=== PATIENT | female | born 1950 | race Caucasian/White ===

== ENCOUNTER → 2016-04-28 | Outpatient (CLI) | payer OTHER ==
[2016-04-28 14:33] LABS: Non-African American GFR(MDRD) >60 (>60 ml/min/1.73 sqM)
--- NOTE | 2016-04-28 16:37 | MR ---
EXAMINATION TYPE: MR cervical spine wo/w con DATE OF EXAM: 04/28/2016 3:35 PM COMPARISON: NONE HISTORY: Neck pain, rt arm/shoulder pain & numbness, no hx surgery/trauma TECHNIQUE: Multiplanar, multisequence images of the cervical spine were acquired utilizing 7 mL intravenous Mult iHance gadolinium contrast. Diffusion weighted imaging was performed. C2-C3: No evidence for degenerative disc disease. No disc bulge/herniation or protrusion. No Canal stenosis. Foramina are patent bilaterally. C3-C4: Minimal disc bulge is present with anterior thecal sac contact. C4-C5: Broad-based disc bulging is anterior thecal sac flattening. No AP spinal canal stenosis or luca ral foraminal stenosis is present. C5-C6: Mild broad-based disc bulge has moderate anterior thecal sac compression. This comes in close approximation with the spinal cord. No AP spinal canal stenosis is evident. C6-C7: Mild disc bulge is present with anterior thecal sac compression. No spinal canal stenosis pres ent. This comes in close approximation with the spinal cord. C7-T1: No evidence for degenerative disc disease. No disc bulge/herniation or protrusion. No Canal stenosis. Foramina are patent bilaterally. Cervical segments are intact. There is normal alignment. Cervical spinal cord is of normal signal. Craniovertebral junction relationships are within normal limits. IMPRESSION: Multilevel disc bulging greater in the lower cervical spine discussed above. No cord contact or spina l canal stenosis is present.
== END | disposition home or self-care (01) ==
LOC: RADMRIMAIN 14:12
PROVIDERS: ATTEND Internal Medicine
DX: M50.222 Other cervical disc displacement at C5-C6 level (principal); M50.223 Other cervical disc displacement at C6-C7 level
CPT/HCPCS: 82565; 72156; 36415; A9577

== ENCOUNTER → 2016-06-29 | Outpatient (CLI) | payer OTHER ==
[2016-06-29 13:59] VITALS: BP 112/62; PULSE 83; RESP 18; TEMP 98.2
--- NOTE | 2016-06-29 14:13 | P.HPIM ---
History of Present Illness H&P Date: 06/29/16 Chief Complaint: neck and right upper extremity pain This is a 65-year-old patient referred by Dr. Bloom for chronic pain in the neck with radiation to right upper extremity. Patient has been taking medications from primary care physician including Loris 7.5/325 TID medications with some relief. Patient denies adverse drug effects from medications. Patient also denies new-onset weakness, bowel/bladder incontinence, or any other signs or symptoms of cauda equina syndrome. There are no signs of acute intoxication, and no indications of medication diversion or overuse. Patient notes that pain worsens significantly with lifting, reaching, turning her head and bending it forward and improves with rest, ice and medication. Patient has used several types of medications for pain, including NSAIDS, OPIOIDS (Loris), TRAMADOL. Patient HAS NOT had surgery. Patient HAS NOT had injections previously. Patient HAS NOT had physical therapy recently. In addition to above, 13-point review of systems is also negative for chest pain , shortness of breath, changes in vision, changes in hearing, new onset weakness , abdominal pain, diarrhea, extreme fatigue, malaise, fever, skin changes, homicidal or suicidal ideation, or bowel or bladder incontinence. 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 Past Anesthesia/Blood Transfusion Reactions: No Reported Reaction Additional Past Anesthesia/Blood Transfusion Reaction / Comment(s): Pt has never recieved blood. Past Psychological History: No Psychological Hx Reported Additional Psychological History / Comment(s): Pt lives alone. She is independent. She uses no assistive device or home care. She drives. She owns a cleaning company. Smoking Status: Current every day smoker Past Alcohol Use History: None Reported Additional Past Alcohol Use History / Comment(s): Pt states she started smoking at age 17 yrs. 3 packs/wk Past Drug Use History: None Reported - Past Family History Father Family Medical History: Cancer, Coronary Artery Disease (CAD) Additional Family Medical History / Comment(s): Father is . Father had lung cancer. He was a smoker. Mother Additional Family Medical History / Comment(s): Mother is living. She has a hiatal hernia and a mass behind her heart. She is 83yrs old. Medications and Allergies Home Medications Medication Instructions Recorded Confirmed Type Albuterol Inhaler [Ventolin Hfa 1 - 2 puff INHALATION Q6HR PRN 06/25/16 History Inhaler] HYDROcodone/APAP 7.5-325MG [Loris 1 tab PO Q8H PRN 06/25/16 06/29/16 History 7.5-325] Ondansetron HCl [Zofran] 8 mg PO DAILY PRN 06/25/16 06/29/16 History Promethazine HCl/Codeine 5 ml PO HS PRN 06/25/16 06/29/16 History [Prometh-Codein 6.25-10 mg/5 ml] Allergies Allergy/AdvReac Type Severity Reaction Status Date / Time acetaminophen [From Tylenol] Allergy Unknown Verified 10/04/14 04:16 Physical Exam Vitals: Intake and Output 06/28/16 06/29/16 06/29/16 22:59 06:59 14:59 Other: Weight 39.916 kg Patient Weight 06/30/16 06:59 Weight 39.916 kg Results Comments: MRI cervical spine dated 04/28/2016 demonstrates a broad-based disc bulge at the C4-C5 level with anterior thecal sac flattening. At the C5-C6 level there is a mild broad-based disc bulge with moderate anterior thecal sac compression without AP spinal canal stenosis evident. C6-C7 level there is mild disc bulge present with anterior thecal sac compression without spinal canal stenosis. The neural foramina are patent at all levels of the cervical spine. Assessment and Plan (1) Cervical disc herniation Status: Chronic (2) Cervical radiculitis Status: Chronic (3) Chronic pain syndrome Status: Chronic Plan: 1. Explanation: Opioid and psychological risk scores were reviewed. Diagnoses , prognoses, and multiple treatment options including but not limited to physical therapy, interventional therapies, adjuvant medical therapies, narcotic medication therapies, and surgery were discussed with the patient and all questions were answered to the patient's satisfaction. 2. Opioid agreement: Patient signed narcotic agreement, and was orally counseled to not overuse, abuse, divert, or cell medications, and to take them as prescribed by only 1 healthcare provider. The patient was also counseled to take medications as prescribed by only 1 healthcare provider and to store opioid medications in the safe and preferably locked location. Patient was also counseled against driving or operating heavy equipment while using narcotic medications and also not use alcohol or any illicit or recreational drugs. The patient verbalized understanding that lack of compliance with any of the above and likely result in failure to renew narcotic prescriptions, possible discharge from the clinic, and possible legal ramifications thereafter if indicated. 3. Counseling: The patient was counseled extensively on SMOKING CESSATION, BODY MASS INDEX, EXERCISE. Specifically, the patient was instructed regarding the importance of smoking cessation, obesity, and exercise in the context of both chronic pain and overall health. 4. Procedures: cervical REI series 5. Consultations: none 6. Investigations: none 7. Medications: none prescribed 8. Disposition: f/u for procedure as scheduled PQRS measures: 1-Patient's medications are documented in the chart. 2-Tobacco use is positive, counseling given 3-Patient has not had a pneumococcal vaccine. 4-Advanced care planning discussed, patient unable to give. 5-Opioid contract NOT signed with the patient. 6-Pain positive, follow-up visit or procedure scheduled 7-Patient's blood pressure measured and documented, and WNL. 8-Patient's weight was measured, and body mass index BELOW the normal limits, and counseling was done. Patient instructed to follow up with PCP. 9-Patient WAS NOT identified as an unhealthy alcohol user. Time with Patient: Greater than 30
== END | disposition home or self-care (01) ==
LOC: PNWHC3 13:20
PROVIDERS: ATTEND Anesthesiology
DX: M50.10 Cervical disc disorder with radiculopathy, unspecified cervical region (principal); G89.4 Chronic pain syndrome; F17.200 Nicotine dependence, unspecified, uncomplicated; Z88.6 Allergy status to analgesic agent
CPT/HCPCS: 99211

== ENCOUNTER 2016-07-13 08:42 | Day surgery (SDC) | payer OTHER ==
[~2016-07-13 08:42] MED LIST: LACTATED RINGERS 1,000 ML IV ONE
[2016-07-13 09:23] VITALS: BMI 16.0
[2016-07-13] MEDS ORDERED: LIDOCAINE 1% 20 ML VIAL (10MG/ML) FOR IV START INTRADERMA ONE (09:37)
[2016-07-13 09:39] VITALS: RESP 16; TEMP 98.8
[2016-07-13] MEDS ORDERED: IOHEXOL 180 MG/ML 1 ML ML ONE (09:45)
[2016-07-13] MEDS ORDERED: MIDAZOLAM 2 MG/2 ML VIAL ONE (09:45)
[2016-07-13] MEDS ORDERED: DEXAMETHASONE SOD PHOSPHATE 10 MG/ML 1 ML VIAL ONE (09:45)
--- NOTE | 2016-07-13 09:59 | P.PCN ---
Date of Procedure: 07/13/16 Preoperative Diagnosis: Postoperative Diagnosis: Procedure(s) Performed: . PROCEDURE 1. Cervical epidural steroid injection under fluoroscopic guidance, C7-T1 2. Cervical epidurogram. PREOPERATIVE DIAGNOSIS: 1- Cervical herniated Disc Diseases 2- Cervical radiculopathy . POSTOPERATIVE DIAGNOSIS: : 1- Cervical herniated Disc Diseases , 2- Cervical radiculopathy. ANESTHESIA: Local anesthesia with 1% lidocaine 3 ml ,and IV sedation with Versed 2 mg . EBL 0 PROCEDURE INDICATION: The patient with neck pain and radiculitis unresponsive to conservative treatment consents for procedure. PROCEDURE DESCRIPTION / TECHNIQUE: The patient was seen and identified in the preoperative area. Risks, benefits, complications, including but not limited to infections ,bleeding , allergic reactions to the medications ,and not complete pain releife, and alternatives were discussed with the patient, the patient agreed to proceed with the procedure and signed the consent. Patient was taken to the OR and time out was completed. The patient was placed in the prone position on the procedure table. A pillow was placed under the patients chest to increase the cervical interlaminar space. The cervical area was prepped and draped in the usual sterile fashion. Vital signs were closely monitored during the procedure. Conscious sedation was used during the procedure to decrease patients anxiety. Using anterior-posterior fluoroscopy, the C7-T1 interlaminar space was identified and the skin over this site was marked and then infiltrated with 1% lidocaine subcutaneously. Subsequently, a 20-gauge 3-1/2-inch Tuohy epidural needle was inserted and advanced toward the epidural space by means of the `` hanging-drop technique and guided by AP and lateral fluoroscopy. The correct needle position in the epidural space was verified with the injection of 2 mL of the water soluble contrast dye Isovue-180 and observing an excellent epidurogram with the epidural spread of the dye, after negative aspiration for blood and CSF and in the absence of paresthesias. Again after negative aspiration, mixture containing 20 mg Dexamethasone and 2 ml of preservative- free normal saline injected and a washout of epidurogram was seen. Needle was withdrawn intact, skin was cleansed, and bandages were applied. Complications= none. Disposition= patient was placed in supine position and transferred to the recovery room area in stable condition and there was no evidence of upper or lower extremity motor or sensory deficit after the procedure patient was discharged from recovery room after discharge criteria met and home discharge instructions was given by the staff and patient will follow with the pain clinic in 2-4 weeks Implants: Indications for Procedure: Operative Findings: Description of Procedure:
[2016-07-13] MEDS ORDERED: IV FLUID CONTINUATION 700 ML IV ONE (10:04)
[2016-07-13 10:22] VITALS: BP 108/71; PULSE 72
--- NOTE | 2016-07-13 12:00 | FL ---
Fluoroscopy HISTORY: Pain 2 seconds fluoroscopy time supplied to the referring clinician. 2 intraoperative C-arm images docume nt the procedure. See dictated report from anesthesia.
== END 2016-07-13 10:33 | disposition home or self-care (01) ==
LOC: ORPAIN 08:42
PROVIDERS: ATTEND Specialist
DX: M50.13 Cervical disc disorder with radiculopathy, cervicothoracic region (principal); Z88.6 Allergy status to analgesic agent
CPT/HCPCS: 62321; J2250; J1100; Q9965

== ENCOUNTER 2016-08-10 07:47 | Day surgery (SDC) | payer OTHER ==
[2016-08-09 09:02] VITALS: BMI 15.5
[2016-08-10] MEDS ORDERED: LACTATED RINGERS 1,000 ML IV SCH (08:00)
[2016-08-10 08:20] VITALS: RESP 16; TEMP 97.7
[2016-08-10] MEDS ORDERED: LIDOCAINE 1% 20 ML VIAL (10MG/ML) FOR IV START INTRADERMA ONE (08:28)
[2016-08-10] MEDS ORDERED: MIDAZOLAM 2 MG/2 ML VIAL ONE (08:55)
[2016-08-10] MEDS ORDERED: fentaNYL (PF) 50 MCG/ML 2 ML AMP ONE (08:55)
[2016-08-10] MEDS ORDERED: IOHEXOL 180 MG/ML 1 ML ML ONE (08:55)
[2016-08-10] MEDS ORDERED: DEXAMETHASONE SOD PHOS (MDV) 100 MG/10 ML VIAL ONE (08:55)
--- NOTE | 2016-08-10 09:09 | P.PCN ---
Date of Procedure: 08/10/16 Preoperative Diagnosis: Postoperative Diagnosis: Procedure(s) Performed: Implants: Surgeon: Enmanuel Mix Pathology: none sent Condition: stable Disposition: PACU Indications for Procedure: Operative Findings: Description of Procedure: PREOPERATIVE DIAGNOSIS: Cervical radiculopathy. POSTOPERATIVE DIAGNOSIS: Cervical radiculopathy. PROCEDURE 1. Cervical epidural steroid injection under fluoroscopic guidance, C7-T1 level. 2. Cervical epidurogram. ANESTHESIA: Local anesthesia with 1% lidocaine and IV sedation with versed/ fentanyl. EBL: Minimal PROCEDURE INDICATION: The patient with neck pain and radiculitis unresponsive to conservative treatment consents for procedure, KIP #2 in series after 12 hours relief from last procedure. No use of blood thinners. PROCEDURE DESCRIPTION / TECHNIQUE: The patient was seen and identified in the preoperative area. Risks, benefits, complications, and alternatives were discussed with the patient (including but not limited to incomplete pain relief, bleeding, infection, nerve damage, and allergies to medications), the patient agreed to proceed with the procedure and signed the consent after all questions were answered. Patient was taken to the OR and time out was completed to verify proper patient , position, laterality of pain, and allergies. Pt was placed in the prone position. A pillow was placed under the patients chest to increase the cervical interlaminar space. The cervical area was prepped and draped in the usual sterile fashion. Critical pause was taken. Vital signs were closely monitored during the procedure. Conscious sedation was used during the procedure to decrease patients anxiety. Using anterior-posterior fluoroscopy, the C7-T1 interlaminar space was identified and the skin over this site was marked and then infiltrated with 1% lidocaine subcutaneously in a paramedian fashion. Subsequently, a 20-gauge 3-1/2 -inch Tuohy epidural needle was inserted and advanced toward the epidural space by means of the loss of resistance technique and guided by AP and lateral fluoroscopy. After negative aspiration for blood or CSF and in the absence of paresthesias, the correct needle position in the epidural space was verified with the injection of 1 mL of the water soluble contrast dye Omnipaque-180 and observing an excellent epidurogram with the epidural spread of the dye, after negative aspiration for blood and CSF and in the absence of paresthesias. Again after negative aspiration, a 4 ml mixture containing 20 mg of PF Decadron and 2 ml of preservative free Normal Saline solution was injected and a washout of epidurogram was seen. Needle was withdrawn intact, skin was cleansed, and bandages were applied. COMPLICATIONS: None COMMENTS: DISPOSITION / PLANS: The patient was placed in a supine position and transferred to the recovery area in a stable condition for observation. There was no evidence of upper extremity motor or sensory deficit after the procedure. Patient was discharged from the recovery room after meeting discharge criteria. Home discharge instructions were given to the patient by the staff. The patient was reexamined prior to discharge and there were no issues. Despite having relief for only 8-12 hours after last cervical REI, patient wishes to have a full set of three procedures; she will be scheduled for a third cervical REI in 4-6 weeks.
[2016-08-10] MEDS ORDERED: IV FLUID CONTINUATION 1,000 ML IV ONE (09:16)
[2016-08-10 09:31] VITALS: BP 114/72; PULSE 75
--- NOTE | 2016-08-10 09:33 | FL ---
FLUOROSCOPY 6 seconds of fluoroscopy time were utilized during Pain Injection. 2 images document the procedure.
== END 2016-08-10 09:46 | disposition home or self-care (01) ==
LOC: ORPAIN 07:47
PROVIDERS: ATTEND Anesthesiology
DX: M54.12 Radiculopathy, cervical region (principal); Z88.6 Allergy status to analgesic agent
CPT/HCPCS: 62321; J2250; Q9965; J3010; J1100

== ENCOUNTER → 2016-08-26 | Outpatient (CLI) | payer OTHER ==
--- NOTE | 2016-08-27 09:07 | CT ---
EXAMINATION TYPE: CT abdomen pelvis w con DATE OF EXAM: 08/26/2016 COMPARISON: PET CT scan 11/02/2014 HISTORY: Pt states of abdominal pain. Hx of gastric/esophageal CA. CT DLP: 564 mGycm Automated exposure control for dose reduction was used. CONTRAST: CT scan of the abdomen pelvis is performed with IV Contrast, patient injected with 100 mL of Omnipaqu e 300. FINDINGS- LUNG BASES-there is a small left pleural effusion with evidence of compressive atelectasis. Emphysema tous changes are suspected. Linear changes right lung base typical of atelectasis. There is a moderat e-sized pericardial effusion. LIVER/GB-is cholecystectomy noted. Mild intrahepatic pillar dilation likely post cholecystectomy. Tin y hypodensities involving the liver too small to characterize. PANCREAS- No gross abnormality is seen. SPLEEN- No gross abnormality is seen. ADRENALS-chronic nodularity of the adrenal glands is nonspecific. KIDNEYS/BLADDER- no hydronephrosis nephrolithiasis or renal mass. Nonobstructing right renal calculus noted. BOWEL-postsurgical change involving the esophagus and stomach noted with suspected pull-through proce dure. Correlate clinically. Diverticulosis of the colon noted.. LYMPH NODES- No greater than 1cm abdominal or pelvic lymph nodes are appreciated. OSSEOUS STRUCTURES-bilateral spondylolysis L5. Minimal anterolisthesis L5 on S1 with severe degenerat dylan disc disease with vacuum disc. OTHER- there is evidence of ascites and there is a large complex mass involving the pelvis with inte rnal septations and solid components measuring approximately 13 x 9 x 8 cm. IMPRESSION- 1. Complex pelvic mass measuring 13 x 9 cm could be ovarian in etiology rather than gastric metastase s. Both are within the differential diagnosis. There is ascites and a moderate pericardial effusion. Correlate clinically. 2. Postsurgical changes involving the esophagus and stomach with suggestion pull-through procedure. 3. Small left pleural effusion. 4. The sigmoid and rectosigmoid colonic wall is thickened which may be related to incomplete distenti on in mass effect from the large pelvic mass. Correlate clinically to exclude mucosal lesion. No infl ammatory changes.
== END | disposition home or self-care (01) ==
LOC: RADCTMAIN 17:45
PROVIDERS: ATTEND Internal Medicine
DX: K63.89 Other specified diseases of intestine (principal); R18.8 Other ascites; Z98.890 Other specified postprocedural states
CPT/HCPCS: 74177; Q9967 ×2

== ENCOUNTER 2016-08-28 23:06 | Inpatient (IN) | payer OTHER ==
[2016-08-28] MEDS ORDERED: SODIUM CHLORIDE 0.9% 500 ML IV STA (23:30)
[2016-08-28] MEDS ORDERED: MORPHINE SULFATE 4 MG/ML SYRINGE IV STA (23:30)
[2016-08-28] MEDS ORDERED: ONDANSETRON 4 MG/2 ML VIAL IVP STA (23:30)
[2016-08-28 23:40] LABS: Basophils % (A) 0 %; CH 29.3; CHCM 32.3; Eosinophils # (A) 0.1 k/uL (0-0.7); Eosinophils % (A) 1 %; HCT 45.2 % (34.0-46.0); HDW 2.42; HGB 14.9 gm/dL (11.4-16.0); Luc # (Auto) 0.08; Luc % (Auto) 1; Lymphocytes # (A) 0.5 k/uL (1.0-4.8); Lymphocytes % (A) 5 %; Mean Platelet Volume 7.5; Monocytes # (A) 0.4 k/uL (0-1.0); Monocytes % (A) 4 %; Neutrophils # (A) 9.6 k/uL (1.3-7.7); Neutrophils % (A) 90 %; RBC 4.97 m/uL (3.80-5.40); RDW 13.5 % (11.5-15.5); WBC 10.7 k/uL (3.8-10.6); WBC (Perox) 9.98
[2016-08-28 23:53] LABS: INR 1.1 (<1.2); Partial Thromboplastin Time 22.3 sec (22.0-30.0); Prothrombin Time 11.4 sec (9.0-12.0)
[2016-08-28 23:54] LABS: ALT 63 U/L (9-52); AST 61 U/L (14-36); Alkaline Phosphatase 200 U/L (38-126); Amylase <30 U/L (30-110); Anion Gap 16 mmol/L; Blood Urea Nitrogen 27 mg/dL (7-17); Calcium 9.8 mg/dL (8.4-10.2); Carbon Dioxide 19 mmol/L (22-30); Chloride 101 mmol/L (98-107); Glucose 161 mg/dL (74-99); Non-African American GFR(MDRD) >60 (>60 ml/min/1.73 sqM); Potassium 4.5 mmol/L (3.5-5.1); Sodium 136 mmol/L (137-145); Total Bilirubin 0.7 mg/dL (0.2-1.3); Total Protein 6.9 g/dL (6.3-8.2)
--- NOTE | 2016-08-29 00:03 | ED ---
Abdominal Pain HPI - General Chief Complaint: Abdominal Pain Stated Complaint: abd pain Time Seen by Provider: 08/28/16 23:12 Source: patient, EMS, RN notes reviewed Mode of arrival: EMS Limitations: physical limitation - History of Present Illness Initial Comments: This a 65-year-old female presents emergency department via EMS chief complaint abdominal pain. Patient states she's been having increasing abdominal pain over the last few days. Patient saw her primary care physician for this and which she had a CT of her abdomen and pelvis [address] did show a large pelvic mass. Patient states she has a history of colon cancer esophageal cancer. Patient bowel resection and some his resection with pull-through procedure. Patient states that she felt that she is constipated give herself an enema states it did not help. She states then she digitally disimpact herself and she had 3 home balls of stool which removed but states it did not help her symptoms. Patient states her abdomen feels distended and very firm. Patient denies any fever, chills, chest pain or shortness breath. Patient denies any headache or dizziness. Patient states that her primary care physician was supposed to contact her oncologist though she never received a phone call. She denies any dysuria or hematuria. - Related Data Home Medications Medication Instructions Recorded Confirmed Albuterol Inhaler [Ventolin Hfa 1 - 2 puff INHALATION Q6HR PRN 06/25/16 08/28/16 Inhaler] Promethazine HCl/Codeine 5 ml PO Q8HR PRN 06/25/16 08/28/16 [Prometh-Codein 6.25-10 mg/5 ml] Lactulose 30 ml PO DAILY 08/28/16 08/28/16 Morphine Sulfate ER [Ms Contin] 30 mg PO Q12HR 08/28/16 08/28/16 Allergies Allergy/AdvReac Type Severity Reaction Status Date / Time acetaminophen [From Tylenol] Allergy stomach Verified 08/28/16 23:17 problems Review of Systems ROS Statement: Those systems with pertinent positive or pertinent negative responses have been documented in the HPI. ROS Other: All systems not noted in ROS Statement are negative. Past Medical History Past Medical History: Cancer, COPD, GERD/Reflux Additional Past Medical History / Comment(s): Other HX: colon cancer with resection, cervical cancer with hysterectomy, skin cancer with removal, heart murmur, hemorrhoids, back pain-bulging disc, 02-3 liters prn History of Any Multi-Drug Resistant Organisms: C-DIFF Past Surgical History: Bowel Resection, Cholecystectomy, Hysterectomy Additional Past Surgical History / Comment(s): Colon resection, hysterectomy ( pt has one ovary), skin cancer removal. Past Anesthesia/Blood Transfusion Reactions: No Reported Reaction Additional Past Anesthesia/Blood Transfusion Reaction / Comment(s): Pt has never recieved blood. Past Psychological History: No Psychological Hx Reported Smoking Status: Current every day smoker Past Alcohol Use History: None Reported Past Drug Use History: None Reported - Past Family History Father Family Medical History: Cancer, Coronary Artery Disease (CAD) Additional Family Medical History / Comment(s): Father is . Father had lung cancer. He was a smoker. Mother Additional Family Medical History / Comment(s): Mother is living. She has a hiatal hernia and a mass behind her heart. She is 83yrs old. General Exam Limitations: physical limitation General appearance: alert, in no apparent distress Head exam: Present: atraumatic, normocephalic, normal inspection Eye exam: Present: normal appearance, PERRL, EOMI. Absent: scleral icterus, conjunctival injection, periorbital swelling ENT exam: Present: normal exam, mucous membranes moist Neck exam: Present: normal inspection. Absent: tenderness, meningismus, lymphadenopathy Respiratory exam: Present: normal lung sounds bilaterally. Absent: respiratory distress, wheezes, rales, rhonchi, stridor Cardiovascular Exam: Present: regular rate, normal rhythm, normal heart sounds. Absent: systolic murmur, diastolic murmur, rubs, gallop, clicks GI/Abdominal exam: Present: soft, distended, tenderness (Moderate diffuse), rigid, normal bowel sounds. Absent: guarding, rebound Back exam: Absent: CVA tenderness (R), CVA tenderness (L) Skin exam: Present: warm, dry, intact, normal color. Absent: rash Course Vital Signs 08/28/16 08/29/16 08/29/16 23:10 00:16 00:58 Temperature 98.1 F 98.6 F Pulse Rate 94 88 92 Respiratory 30 H 35 H 32 H Rate Blood Pressure 128/75 141/87 131/83 O2 Sat by Pulse 95 95 95 Oximetry 08/29/16 08/29/16 02:35 03:27 Temperature 98.7 F 98.7 F Pulse Rate 93 90 Respiratory 30 H 22 Rate Blood Pressure 121/76 108/70 O2 Sat by Pulse 96 93 L Oximetry Medical Decision Making - Lab Data Result diagrams: 08/28/16 23:20 08/28/16 23:20 Lab Results 08/28/16 08/28/16 08/28/16 Range/Units 23:20 23:20 23:20 WBC 10.7 H (3.8-10.6) k/uL RBC 4.97 (3.80-5.40) m/uL Hgb 14.9 (11.4-16.0) gm/dL Hct 45.2 (34.0-46.0) % MCV 91.0 (80.0-100.0) fL MCH 30.0 (25.0-35.0) pg MCHC 33.0 (31.0-37.0) g/dL RDW 13.5 (11.5-15.5) % Plt Count 379 (150-450) k/uL Neutrophils % 90 % Lymphocytes % 5 % Monocytes % 4 % Eosinophils % 1 % Basophils % 0 % Neutrophils # 9.6 H (1.3-7.7) k/uL Lymphocytes # 0.5 L (1.0-4.8) k/uL Monocytes # 0.4 (0-1.0) k/uL Eosinophils # 0.1 (0-0.7) k/uL Basophils # 0.0 (0-0.2) k/uL PT (9.0-12.0) sec INR (<1.2) APTT (22.0-30.0) sec Sodium 136 L (137-145) mmol/L Potassium 4.5 (3.5-5.1) mmol/L Chloride 101 (98-107) mmol/L Carbon Dioxide 19 L (22-30) mmol/L Anion Gap 16 mmol/L BUN 27 H (7-17) mg/dL Creatinine 0.70 (0.52-1.04) mg/dL Est GFR (MDRD) Af Amer >60 (>60 ml/min/1.73 sqM) Est GFR (MDRD) Non-Af >60 (>60 ml/min/1.73 sqM) Glucose 161 H (74-99) mg/dL Lactic Ac Sepsis Rflx Plasma Lactic Acid Keyshawn 2.9 H* (0.7-2.0) mmol/L Calcium 9.8 (8.4-10.2) mg/dL Total Bilirubin 0.7 (0.2-1.3) mg/dL AST 61 H (14-36) U/L ALT 63 H (9-52) U/L Alkaline Phosphatase 200 H (38-126) U/L Total Protein 6.9 (6.3-8.2) g/dL Albumin 4.3 (3.5-5.0) g/dL Amylase <30 L (30-110) U/L Lipase 29 (23-300) U/L Urine Color Urine Appearance (Clear) Urine pH (5.0-8.0) Ur Specific [place] (1.001-1.035) Urine Protein (Negative) Urine Glucose (UA) (Negative) Urine Ketones (Negative) Urine Blood (Negative) Urine Nitrite (Negative) Urine Bilirubin (Negative) Urine Urobilinogen (<2.0) mg/dL Ur Leukocyte Esterase (Negative) Urine RBC (0-5) /hpf Urine WBC (0-5) /hpf Ur Squamous Epith Cells (0-4) /hpf Urine Bacteria (None) /hpf Hyaline Casts (0-2) /lpf Urine Mucus (None) /hpf 08/28/16 08/28/16 08/29/16 Range/Units 23:20 23:40 00:07 WBC (3.8-10.6) k/uL RBC (3.80-5.40) m/uL Hgb (11.4-16.0) gm/dL Hct (34.0-46.0) % MCV (80.0-100.0) fL MCH (25.0-35.0) pg MCHC (31.0-37.0) g/dL RDW (11.5-15.5) % Plt Count (150-450) k/uL Neutrophils % % Lymphocytes % % Monocytes % % Eosinophils % % Basophils % % Neutrophils # (1.3-7.7) k/uL Lymphocytes # (1.0-4.8) k/uL Monocytes # (0-1.0) k/uL Eosinophils # (0-0.7) k/uL Basophils # (0-0.2) k/uL PT 11.4 (9.0-12.0) sec INR 1.1 (<1.2) APTT 22.3 (22.0-30.0) sec Sodium (137-145) mmol/L Potassium (3.5-5.1) mmol/L Chloride (98-107) mmol/L Carbon Dioxide (22-30) mmol/L Anion Gap mmol/L BUN (7-17) mg/dL Creatinine (0.52-1.04) mg/dL Est GFR (MDRD) Af Amer (>60 ml/min/1.73 sqM) Est GFR (MDRD) Non-Af (>60 ml/min/1.73 sqM) Glucose (74-99) mg/dL Lactic Ac Sepsis Rflx Y Plasma Lactic Acid Keyshawn (0.7-2.0) mmol/L Calcium (8.4-10.2) mg/dL Total Bilirubin (0.2-1.3) mg/dL AST (14-36) U/L ALT (9-52) U/L Alkaline Phosphatase (38-126) U/L Total Protein (6.3-8.2) g/dL Albumin (3.5-5.0) g/dL Amylase (30-110) U/L Lipase (23-300) U/L Urine Color Dark Yellow Urine Appearance Cloudy H (Clear) Urine pH 5.5 (5.0-8.0) Ur Specific [place] 1.020 (1.001-1.035) Urine Protein 1+ H (Negative) Urine Glucose (UA) Negative (Negative) Urine Ketones 1+ H (Negative) Urine Blood Moderate H (Negative) Urine Nitrite Negative (Negative) Urine Bilirubin 1+ H (Negative) Urine Urobilinogen 3.0 (<2.0) mg/dL Ur Leukocyte Esterase Small H (Negative) Urine RBC 3 (0-5) /hpf Urine WBC 9 H (0-5) /hpf Ur Squamous Epith Cells 3 (0-4) /hpf Urine Bacteria Rare H (None) /hpf Hyaline Casts 157 H (0-2) /lpf Urine Mucus Moderate H (None) /hpf Disposition Clinical Impression: Intractable abdominal pain, Pelvic mass Disposition: ADMITTED IP TO THIS [facility] Condition: Fair Referrals: Shaina Bloom MD [Primary Care Provider] - 1-2 days
[2016-08-29] MEDS ORDERED: SODIUM CHLORIDE 0.9% 500 ML IV ONE (00:07)
--- NOTE | 2016-08-29 00:14 | XR ---
EXAM: XR Kub CLINICAL HISTORY: Reason: abdominal pain TECHNIQUE: Upright view abdomen. COMPARISON: CT abdomen and pelvis 08/26. FINDINGS/IMPRESSION: Nonobstructive bowel gas pattern. Contrast seen in colon. Contrast extends to the distal colon. No subdiaphragmatic free air is seen. Postop changes. Suspected pleural effusions with adjacent atelectasis.
[2016-08-29 00:18] LABS: Appearance,Urine Cloudy (Clear); Bacteria,Urine Rare /hpf; Bilirubin,Urine 1+ (Negative); Glucose,Urine (UA) Negative (Negative); Ketones,Urine 1+ (Negative); Leukocyte Esterase,Urine Small (Negative); Mucus,Urine Moderate /hpf; Nitrite,Urine Negative (Negative); PH, Urine 5.5 (5.0-8.0); Particle Count 15134; Protein,Urine 1+ (Negative); RBC,Urine 3 /hpf (0-5); Squamous Epithelial Cell,Urine 3 /hpf (0-4); UA Billing (MACRO vs. MICRO) MICRO; WBC,Urine 9 /hpf (0-5)
[2016-08-29] MEDS ORDERED: HYDROmorphone 1 MG/ML 1 ML SYRINGE IVP STA ×2 (00:19→03:24)
[2016-08-29] MEDS ORDERED: PIPERACILLIN-TAZOBACTAM 3.375 GM in DEXTROSE/WATER 1 50ML.BAG IVPB STA (00:59)
[2016-08-29] MEDS ORDERED: NALOXONE 0.4 MG/ML 1 ML VIAL IV PRN (03:44)
[2016-08-29] MEDS ORDERED: BISACODYL 5 MG TABLET.DR PO PRN (03:44)
[2016-08-29] MEDS: ONDANSETRON 4 MG/2 ML VIAL IVP PRN ×3 (04:37→21:30)
[2016-08-29] MEDS: SODIUM CHLORIDE 0.9% 1,000 ML IV SCH ×2 (04:40→17:42)
[2016-08-29 06:01] VITALS: BMI 13.7
[2016-08-29] MEDS: HYDROmorphone 1 MG/ML 1 ML SYRINGE IV PRN ×2 (06:31→11:02)
--- NOTE | 2016-08-29 13:30 | P.HPIM ---
History of Present Illness H&P Date: 08/29/16 Chief Complaint: Abdominal pain Patient is a 65-year-old female presents emergency department via EMS chief complaint abdominal pain. Patient states she's been having increasing abdominal pain over the last few days. Patient was seen in my office, for this and she had a CT of her abdomen and pelvis on 08/26/2016. The CT did show a large pelvic mass. Patient states she has a history of colon cancer esophageal cancer. Patient states that she felt that she is constipated give herself an enema states it did not help. She states then she digitally disimpact herself and she had 3 home balls of stool which removed but states it did not help her symptoms. Patient states her abdomen feels distended and very firm. Patient denies any fever, chills, chest pain or shortness breath. Patient denies any headache or dizziness. She denies any dysuria or hematuria. Past Medical History Past Medical History: Cancer, COPD, GERD/Reflux Additional Past Medical History / Comment(s): Other HX: colon cancer with resection, cervical cancer with hysterectomy, skin cancer with removal, heart murmur, hemorrhoids, back pain-bulging disc, 02-3 liters prn, stomach, lung, esophagus cancer History of Any Multi-Drug Resistant Organisms: C-DIFF Date of last positivie culture/infection: 08/15/2014 MDRO Source:: stool Past Surgical History: Bowel Resection, Cholecystectomy, Hysterectomy Additional Past Surgical History / Comment(s): Colon resection, hysterectomy ( pt has one ovary), skin cancer removal. Past Anesthesia/Blood Transfusion Reactions: No Reported Reaction Additional Past Anesthesia/Blood Transfusion Reaction / Comment(s): Pt has never recieved blood. Past Psychological History: No Psychological Hx Reported Additional Psychological History / Comment(s): Pt lives with mother. She is independent. She uses no assistive device or home care. She drives. Smoking Status: Current every day smoker Past Alcohol Use History: None Reported Past Drug Use History: None Reported - Past Family History Sister(s) Family Medical History: Cancer Additional Family Medical History / Comment(s): breast cancer Father Family Medical History: Cancer, Coronary Artery Disease (CAD) Additional Family Medical History / Comment(s): Father is . Father had lung cancer. He was a smoker. Mother Additional Family Medical History / Comment(s): Mother is living. She has a hiatal hernia and a mass behind her heart. She is 83yrs old. Medications and Allergies Home Medications Medication Instructions Recorded Confirmed Type Albuterol Inhaler [Ventolin Hfa 1 - 2 puff INHALATION RT-Q6H PRN 06/25/16 History Inhaler] Lactulose 30 ml PO DAILY 08/28/16 08/29/16 History Morphine Sulfate ER [Ms Contin] 30 mg PO Q12HR 08/28/16 08/29/16 History Allergies Allergy/AdvReac Type Severity Reaction Status Date / Time acetaminophen [From Tylenol] AdvReac stomach Verified 08/29/16 08:37 problems Physical Exam Vitals: Vital Signs Temp Pulse Pulse Resp BP BP BP 08/29/16 07:00 98.0 F 109 H 24 108/77 08/29/16 05:56 97.1 F L 94 16 116/68 08/29/16 04:37 98.9 F 94 24 109/77 08/29/16 03:27 98.7 F 90 22 108/70 08/29/16 02:35 98.7 F 93 30 H 121/76 08/29/16 00:58 98.6 F 92 32 H 131/83 08/29/16 00:16 88 35 H 141/87 08/28/16 23:10 98.1 F 94 30 H 128/75 Pulse Ox 08/29/16 07:00 92 L 08/29/16 05:56 92 L 08/29/16 04:37 94 L 08/29/16 03:27 93 L 08/29/16 02:35 96 08/29/16 00:58 95 08/29/16 00:16 95 08/28/16 23:10 95 Intake and Output 08/28/16 08/29/16 08/29/16 22:59 06:59 14:59 Other: Weight 34.019 kg In general patient is alert and oriented 3 in no apparent distress HEENT head normocephalic and atraumatic Neck is supple no JVD no goiter no lymphadenopathy Chest exam reveals a few scattered crackles no wheezing Cardiac exam reveals regular heart sounds S1 and S2 no gallops no murmurs Abdomen is hard with diffuse tenderness Extremity exam reveals no edema no cyanosis or clubbing Results CBC & Chem 7: 08/28/16 23:20 07/15/17 23:20 Labs: Abnormal Lab Results - Last 24 Hours (Table) 08/28/16 08/28/16 08/28/16 Range/Units 23:20 23:20 23:20 WBC 10.7 H (3.8-10.6) k/uL Neutrophils # 9.6 H (1.3-7.7) k/uL Lymphocytes # 0.5 L (1.0-4.8) k/uL Sodium 136 L (137-145) mmol/L Carbon Dioxide 19 L (22-30) mmol/L BUN 27 H (7-17) mg/dL Glucose 161 H (74-99) mg/dL Plasma Lactic Acid Keyshawn 2.9 H* (0.7-2.0) mmol/L AST 61 H (14-36) U/L ALT 63 H (9-52) U/L Alkaline Phosphatase 200 H (38-126) U/L Amylase <30 L (30-110) U/L Urine Appearance (Clear) Urine Protein (Negative) Urine Ketones (Negative) Urine Blood (Negative) Urine Bilirubin (Negative) Ur Leukocyte Esterase (Negative) Urine WBC (0-5) /hpf Urine Bacteria (None) /hpf Hyaline Casts (0-2) /lpf Urine Mucus (None) /hpf 08/28/16 Range/Units 23:40 WBC (3.8-10.6) k/uL Neutrophils # (1.3-7.7) k/uL Lymphocytes # (1.0-4.8) k/uL Sodium (137-145) mmol/L Carbon Dioxide (22-30) mmol/L BUN (7-17) mg/dL Glucose (74-99) mg/dL Plasma Lactic Acid Keyshawn (0.7-2.0) mmol/L AST (14-36) U/L ALT (9-52) U/L Alkaline Phosphatase (38-126) U/L Amylase (30-110) U/L Urine Appearance Cloudy H (Clear) Urine Protein 1+ H (Negative) Urine Ketones 1+ H (Negative) Urine Blood Moderate H (Negative) Urine Bilirubin 1+ H (Negative) Ur Leukocyte Esterase Small H (Negative) Urine WBC 9 H (0-5) /hpf Urine Bacteria Rare H (None) /hpf Hyaline Casts 157 H (0-2) /lpf Urine Mucus Moderate H (None) /hpf Thrombosis Risk Factor Assmnt - Choose All That Apply Any of the Below Risk Factors Present?: Yes Other Risk Factors: Yes Each Risk Factor Represents 2 Points: Age 61-74 years Other congenital or acquired thrombophilia - If yes, enter type in comment: No Thrombosis Risk Factor Assessment Total Risk Factor Score: 2 Thrombosis Risk Factor Assessment Level: Low Risk Assessment and Plan Plan: #1 abdominal pain with constipation #2 recently diagnosed large pelvic mass on computed tomography scan on 2006 #3 recent history of nasopharyngeal cancer #4 remote history of colon cancer #5 evidence of urinary tract infection At this time continue with IV antibiotic, IV fluid, keep nothing by mouth Consultation for general surgery and oncology initiated Will follow closely Prognosis is guarded
[2016-08-29] MEDS: LACTULOSE 20 GM/30 ML CUP PO SCH ×2 (13:35→21:23)
[2016-08-29] MEDS: HYDROmorphone 1 MG/ML 1 ML SYRINGE IVP PRN ×3 (15:40→21:23)
[2016-08-30] MEDS: HYDROmorphone 1 MG/ML 1 ML SYRINGE IVP PRN ×9 (00:31→21:57)
[2016-08-30] MEDS: ONDANSETRON 4 MG/2 ML VIAL IVP PRN ×2 (06:29→14:18)
[2016-08-30 07:23] LABS: Glucose,Whole Blood 143 mg/dL (75-99)
[2016-08-30] MEDS: SODIUM CHLORIDE 0.9% 1,000 ML IV SCH ×2 (08:06→20:26)
[2016-08-30] MEDS: LACTULOSE 20 GM/30 ML CUP PO SCH ×2 (08:07→20:26)
[2016-08-30 08:25] LABS: Basophils % (A) 0 %; CH 29.4; CHCM 31.3; Eosinophils % (A) 0 %; HCT 44.4 % (34.0-46.0); HDW 2.49; HGB 14.2 gm/dL (11.4-16.0); Hypochromasia Slight; Luc # (Auto) 0.11; Luc % (Auto) 2; Lymphocytes # (A) 0.4 k/uL (1.0-4.8); Lymphocytes % (A) 6 %; MCH 30.1 pg (25.0-35.0); MCHC 31.9 g/dL (31.0-37.0); MCV 94.3 fL (80.0-100.0); Mean Platelet Volume 7.2; Monocytes # (A) 0.5 k/uL (0-1.0); Monocytes % (A) 8 %; Neutrophils # (A) 5.1 k/uL (1.3-7.7); Neutrophils % (A) 83 %; RBC 4.71 m/uL (3.80-5.40); RDW 13.7 % (11.5-15.5); WBC 6.1 k/uL (3.8-10.6); WBC (Perox) 6.13
[2016-08-30 08:31] LABS: ALT 46 U/L (9-52); AST 38 U/L (14-36); Alkaline Phosphatase 152 U/L (38-126); Anion Gap 15 mmol/L; Blood Urea Nitrogen 30 mg/dL (7-17); Calcium 9.2 mg/dL (8.4-10.2); Carbon Dioxide 17 mmol/L (22-30); Chloride 105 mmol/L (98-107); Glucose 140 mg/dL (74-99); Non-African American GFR(MDRD) >60 (>60 ml/min/1.73 sqM); Potassium 5.2 mmol/L (3.5-5.1); Sodium 137 mmol/L (137-145); Total Bilirubin 0.7 mg/dL (0.2-1.3)
[2016-08-30 09:26] LABS: Total Protein 6.1 g/dL (6.3-8.2)
[2016-08-30] MEDS ORDERED: SODIUM POLYSTYRENE SULFONATE 15 GM/60 ML BOTTLE PO STA (10:38)
--- NOTE | 2016-08-30 10:59 | P.PN ---
Subjective Patient is a 65-year-old female presents emergency department via EMS chief complaint abdominal pain. Patient states she's been having increasing abdominal pain over the last few days. Patient was seen in my office, for this and she had a CT of her abdomen and pelvis on 08/26/2016. The CT did show a large pelvic mass. Patient states she has a history of colon cancer esophageal cancer. Patient states that she felt that she is constipated give herself an enema states it did not help. She states then she digitally disimpact herself and she had 3 home balls of stool which removed but states it did not help her symptoms. Patient states her abdomen feels distended and very firm. Patient denies any fever, chills, chest pain or shortness breath. Patient denies any headache or dizziness. She denies any dysuria or hematuria. 08/30/2016 patient still complaining of severe abdominal pain mostly on the right side. Her abdomen is firm and hard. No bowel movements today. She reports a small stool that was hard the day she came in. Patient still having episodes of vomiting. No improvement with the Zofran. Pain is not controlled. The IV Dilaudid will be increased to 1.5 mg every 3 hours when necessary. Patient had noticed some pink in the emesis. Also the bowel movements prior to she came in there was some blood with the stool. Objective - Vital Signs Vital signs: Vital Signs Temp 96.2 F L 08/30/16 07:10 Pulse 103 H 08/30/16 07:20 Resp 16 08/30/16 07:10 BP 115/63 08/30/16 07:10 Pulse Ox 98 08/30/16 07:27 Intake & Output 08/29/16 08/30/16 08/30/16 18:59 06:59 18:59 Intake Total 700 Balance 700 Intake: IV 700 Piperacillin-Tazobactam 3 50 .375 gm In Dextrose/Water 1 50ml.bag @ 12.5 mls/hr IVPB ONCE STA Rx#: [id number] Sodium Chloride 0.9% 1, 600 000 ml @ 75 mls/hr IV . [id number] RENE Rx#:[id number] cefTRIAXone 1,000 mg In 50 Sodium Chloride 0.9% 50 ml @ 100 mls/hr IVPB Q24HR RENE Rx#:[id number] Other: # Voids 1 0 # Emeses 2 - Exam Head normocephalic Neck supple Lungs clear to auscultation bilaterally no wheezing or crackles Heart regular rate and rhythm S1-S2, no rub or gallop Abdomen is distended and firm. Tender with palpation especially on the right side. Extremities no edema Neuro alert and orientated to 3 - Labs CBC & Chem 7: 08/30/16 07:30 08/30/16 07:30 Labs: Abnormal Lab Results - Last 24 Hours (Table) 08/30/16 08/30/16 08/30/16 Range/Units 07:02 07:30 07:30 Lymphocytes # 0.4 L (1.0-4.8) k/uL Potassium 5.2 H (3.5-5.1) mmol/L Carbon Dioxide 17 L (22-30) mmol/L BUN 30 H (7-17) mg/dL Creatinine 0.51 L (0.52-1.04) mg/dL Glucose 140 H (74-99) mg/dL POC Glucose (mg/dL) 143 H (75-99) mg/dL AST 38 H (14-36) U/L Alkaline Phosphatase 152 H (38-126) U/L Total Protein 6.1 L (6.3-8.2) g/dL Microbiology - Last 24 Hours (Table) 08/30/16 00:10 Urine Culture - Preliminary Urine,Clean Catch 08/28/16 23:20 Blood Culture - Preliminary Blood No Growth after 24 hours Assessment and Plan Plan: #1 abdominal pain with constipation #2 recently diagnosed large pelvic mass on computed tomography scan on 2006. Check a CA-125 level. Awaiting oncology and surgical evaluation #3 recent history of esophageal cancer #4 remote history of colon cancer #5 evidence of urinary tract infection: Continue Rocephin. Urine culture pending. #6 hyperkalemia: Potassium 5.2. Give 1 dose of Kayexalate 15 g. Repeat labs in a.m. #7 Vomiting: Continue Zofran. Having nursing staff contact surgical service for further recommendations. #8 elevated LFTs trending down. #9 patient having some blood with her last stool and pink tinged emesis. Continue to monitor. Hemoglobin stable. #10 pain management: Increase IV Dilaudid to 1.5 mg every 3 hours as needed GI prophylaxis IV Protonix and DVT prophylaxis SCDs I performed an examination of the patient and discussed their management with the physician Certified Orthotic Fitter. I have reviewed the Physician Certified Orthotic Fitter's notes and agree with the documented findings and plan of care
[2016-08-30] MEDS ORDERED: PANTOPRAZOLE 40 MG/10 ML VIAL IVP SCH (12:00)
--- NOTE | 2016-08-30 12:22 | CDI ---
In responding to this query, please exercise your independent professional judgment. The [facility] Coding Staff and Clinical Documentation Specialists appreciate your assistance in clarifying documentation, maintaining compliance with coding guidelines, accurately documenting patients condition and capturing severity of illness. The fact that a question is asked does not imply that any particular answer is desired or expected. Communication forms are a method of clarifying documentation and are not made part of the Legal Health Record. Thank you in advance for your clarification. Last Revision, December 2014 Teressa Hsu [address] [place] [address] Documentation Clarification Form Date: 08/30/2016 12:06:00 PM From: Criselda Raya RN, CDS Admit Date: 08/29/2016 4:45:00 AM Patient Name: Sana Pool Visit Number: [id number] Dr. Shaina Bloom, 65 year old patient admitted for Constipation and recent diagnosis of large pelvic mass seen on CT abdomen and compaints of nausea and vomiting. History/Risk Factors: 65 year old, GERD, Colon/Cervical and recent Esophageal cancer Clinical Indicators: BMI: 13.7, Dietitian consult: "Physical appearance: emaciated, underweight, weight change reason nausea and vomiting, Temporal fat and calf muscle wasting" Labs: Albumin 4.3 and 3.5, Total Protein 6.9 and 6.1, Treatment: Dietitian consult, Ensure Clear with meals In your professional opinion, can you please clarify if these findings signify one of the following conditions? Mild Protein-Calorie Malnutrition Moderate Protein-Calorie Malnutrition Severe Protein-Calorie Malnutrition Other condition, please specify Unable to determine Please document in your progress notes and discharge summary in order to capture severity of illness and risk of mortality. Include clinical findings that support your diagnosis. FYI: Press F11 to launch patient chart. Place X here if this finding has no clinical significance, is not applicable or if you are not able to provide any additional documentation. MAVERICK
[2016-08-30 12:39] LABS: Glucose,Whole Blood 166 mg/dL (75-99)
--- NOTE | 2016-08-30 14:36 | P.GSCN ---
History of Present Illness Consult date: 08/30/16 Reason for Consult: Abdominal pain constipation pelvic mass History of present illness: Thank you very much for asking us to see this patient. She is an unfortunate the 65-year-old white female who developed some abdominal pain and distention nausea or vomiting and some constipation over the last 4-5 days. She had a computed tomography scan which showed a large pelvic mass maximum diameter 13 cm somewhat complex probably related to the ovary. No evidence of obstruction was identified the on her computed tomography scan or the abdominal films today. Her symptoms progressively worsened and she hasn't had anything good to eat last several days. She presented to the emergency room. Patient had the gastroesophageal resection with a pull-through procedure secondary to malignancy several years ago out of town. Also hysterectomy. Apparently had one ovary left. Systems review as above. Some weight loss. No urinary symptoms. No vaginal discharge or bleeding. She feels very tired ill week. ALLERGIES. Acetaminophen. Social history family history well-documented. Examination the patient is a 65-year-old white female somewhat frail ill- looking thin. Temperature is normal. Vitals are stable. Mucous membranes on the dry side. Head and neck otherwise normal. Abdomen is markedly distended with the dullness on the flanks consistent with the ascites. Mild diffuse tenderness. Well-healed midline scar no hernia no mass noted. Rectal exam reveals no evidence of impaction. Both is somewhat empty. Vague mass anteriorly. CT and x-rays as above. No evidence of obstruction. Pelvic mass. Labs are noted. Nausea vomiting abdominal pain pelvic mass probably ovarian in origin. Highly unlikely to be the metastatic disease from her gastroesophageal malignancy. Doubt the colonic obstruction since the abdominal film shows no dilated loops of small or large bowel and these contrast in the rectum from a recent CT exam. Abdominal distention most Likely secondary to ascites in the pelvic mass. Recommendation. Would recommend an ultrasound of the pelvis serology for ovarian C8. However in view of her semi-acute situation I think it would be prudent to refer her to tertiary center and she would like to go to [facility] where she had a gastric surgery. Past Medical History Past Medical History: Cancer, COPD, GERD/Reflux Additional Past Medical History / Comment(s): Other HX: colon cancer with resection, cervical cancer with hysterectomy, skin cancer with removal, heart murmur, hemorrhoids, back pain-bulging disc, 02-3 liters prn, stomach, lung, esophagus cancer History of Any Multi-Drug Resistant Organisms: None Reported Year Discovered:: None MDRO Source:: None Past Surgical History: Bowel Resection, Cholecystectomy, Hysterectomy Additional Past Surgical History / Comment(s): Colon resection, hysterectomy ( pt has one ovary), skin cancer removal. Past Anesthesia/Blood Transfusion Reactions: No Reported Reaction Additional Past Anesthesia/Blood Transfusion Reaction / Comm: Pt has never recieved blood. Past Psychological History: No Psychological Hx Reported Additional Psychological History / Comment(s): Pt lives with mother. She is independent. She uses no assistive device or home care. She drives. Smoking Status: Current every day smoker Past Alcohol Use History: None Reported Past Drug Use History: None Reported - Past Family History Sister(s) Family Medical History: Cancer Additional Family Medical History / Comment(s): breast cancer Father Family Medical History: Cancer, Coronary Artery Disease (CAD) Additional Family Medical History / Comment(s): Father is . Father had lung cancer. He was a smoker. Mother Additional Family Medical History / Comment(s): Mother is living. She has a hiatal hernia and a mass behind her heart. She is 83yrs old. Medications and Allergies Home Medications Medication Instructions Recorded Confirmed Type Albuterol Inhaler [Ventolin Hfa 1 - 2 puff INHALATION RT-Q6H PRN 06/25/16 History Inhaler] Lactulose 30 ml PO DAILY 08/28/16 08/29/16 History Morphine Sulfate ER [Ms Contin] 30 mg PO Q12HR 08/28/16 08/29/16 History Allergies Allergy/AdvReac Type Severity Reaction Status Date / Time acetaminophen [From Tylenol] AdvReac stomach Verified 08/29/16 08:37 problems Surgical - Exam Vital Signs Temp Pulse Resp BP Pulse Ox 98.1 F 94 30 H 128/75 95 08/28/16 23:10 08/28/16 23:10 08/28/16 23:10 08/28/16 23:10 08/28/16 23:10 Results - Labs 08/30/16 07:30 08/30/16 07:30 Abnormal Lab Results - Last 24 Hours (Table) 08/30/16 08/30/16 08/30/16 Range/Units 07:02 07:30 07:30 Lymphocytes # 0.4 L (1.0-4.8) k/uL Potassium 5.2 H (3.5-5.1) mmol/L Carbon Dioxide 17 L (22-30) mmol/L BUN 30 H (7-17) mg/dL Creatinine 0.51 L (0.52-1.04) mg/dL Glucose 140 H (74-99) mg/dL POC Glucose (mg/dL) 143 H (75-99) mg/dL AST 38 H (14-36) U/L Alkaline Phosphatase 152 H (38-126) U/L Total Protein 6.1 L (6.3-8.2) g/dL CA 125 Antigen (<35.1) U/mL 08/30/16 08/30/16 Range/Units 07:30 11:53 Lymphocytes # (1.0-4.8) k/uL Potassium (3.5-5.1) mmol/L Carbon Dioxide (22-30) mmol/L BUN (7-17) mg/dL Creatinine (0.52-1.04) mg/dL Glucose (74-99) mg/dL POC Glucose (mg/dL) 166 H (75-99) mg/dL AST (14-36) U/L Alkaline Phosphatase (38-126) U/L Total Protein (6.3-8.2) g/dL CA 125 Antigen 461.0 H (<35.1) U/mL Microbiology - Last 24 Hours (Table) 08/30/16 00:10 Urine Culture - Preliminary Urine,Clean Catch 08/28/16 23:20 Blood Culture - Preliminary Blood No Growth after 24 hours Diabetes panel 08/30/16 Range/Units 07:30 Sodium 137 (137-145) mmol/L Potassium 5.2 H (3.5-5.1) mmol/L Chloride 105 (98-107) mmol/L Carbon Dioxide 17 L (22-30) mmol/L BUN 30 H (7-17) mg/dL Creatinine 0.51 L (0.52-1.04) mg/dL Glucose 140 H (74-99) mg/dL Calcium 9.2 (8.4-10.2) mg/dL AST 38 H (14-36) U/L ALT 46 (9-52) U/L Alkaline Phosphatase 152 H (38-126) U/L Total Protein 6.1 L (6.3-8.2) g/dL Albumin 3.5 (3.5-5.0) g/dL Calcium panel 08/30/16 Range/Units 07:30 Calcium 9.2 (8.4-10.2) mg/dL Albumin 3.5 (3.5-5.0) g/dL Pituitary panel 08/30/16 Range/Units 07:30 Sodium 137 (137-145) mmol/L Potassium 5.2 H (3.5-5.1) mmol/L Chloride 105 (98-107) mmol/L Carbon Dioxide 17 L (22-30) mmol/L BUN 30 H (7-17) mg/dL Creatinine 0.51 L (0.52-1.04) mg/dL Glucose 140 H (74-99) mg/dL Calcium 9.2 (8.4-10.2) mg/dL Adrenal panel 08/30/16 Range/Units 07:30 Sodium 137 (137-145) mmol/L Potassium 5.2 H (3.5-5.1) mmol/L Chloride 105 (98-107) mmol/L Carbon Dioxide 17 L (22-30) mmol/L BUN 30 H (7-17) mg/dL Creatinine 0.51 L (0.52-1.04) mg/dL Glucose 140 H (74-99) mg/dL Calcium 9.2 (8.4-10.2) mg/dL Total Bilirubin 0.7 (0.2-1.3) mg/dL AST 38 H (14-36) U/L ALT 46 (9-52) U/L Alkaline Phosphatase 152 H (38-126) U/L Total Protein 6.1 L (6.3-8.2) g/dL Albumin 3.5 (3.5-5.0) g/dL
[2016-08-30 17:04] LABS: Glucose,Whole Blood 197 mg/dL (75-99)
--- NOTE | 2016-08-30 17:43 | P.CONS ---
History of Present Illness - Reason for Consult Consult date: 08/30/16 Hx malignancy, pelvic mass Requesting physician: Shaina Bloom - Chief Complaint Abd pain, constipation - History of Present Illness Ms. Pool is a pleasant female pt of Dr. Donahue. Pt has a remote history of ovarian and colon cancer. She more recently has been seen at [facility] for GE junction adenocarcinoma diagnosed in 10/2014 when pt presented with c/o dysphagia, bloating, nausea and anorexia, Dr. Renner did EGD and found dilated esophagus with retained food, 2cm found in cardia was biopsied and non-diagnostic, she was then seen by Dr. Schmidt for EUS at [place] , GE junction infiltrating mass was identified, T2N0 adenocarcinoma. Pt was treated with neoadjuvant chemo, surgery and radiation. Pt was seen in Mar [address] [place] [address] CAP negative for any evidence of disease. Pt states her symptoms started about 2 weeks ago with abd distension, then 1 week ago she became constipated and has not had a BM since, she tried to disimpact herself but just made her self bled, she is anorexic, early satiety, denies fevers or vomiting. She is getting progressively weak and her abd is very painful. Review of Systems All systems: negative Constitutional: Reports as per HPI Past Medical History Past Medical History: Cancer, COPD, GERD/Reflux Additional Past Medical History / Comment(s): Other HX: colon cancer with resection, cervical cancer with hysterectomy, skin cancer with removal, heart murmur, hemorrhoids, back pain-bulging disc, 02-3 liters prn, stomach, lung, esophagus cancer History of Any Multi-Drug Resistant Organisms: None Reported Year Discovered:: None MDRO Source:: None Past Surgical History: Bowel Resection, Cholecystectomy, Hysterectomy Additional Past Surgical History / Comment(s): Colon resection, hysterectomy ( pt has one ovary), skin cancer removal. Past Anesthesia/Blood Transfusion Reactions: No Reported Reaction Additional Past Anesthesia/Blood Transfusion Reaction / Comm: Pt has never recieved blood. Past Psychological History: No Psychological Hx Reported Additional Psychological History / Comment(s): Pt lives with mother. She is independent. She uses no assistive device or home care. She drives. Smoking Status: Current every day smoker Past Alcohol Use History: None Reported Past Drug Use History: None Reported - Past Family History Sister(s) Family Medical History: Cancer Additional Family Medical History / Comment(s): breast cancer Father Family Medical History: Cancer, Coronary Artery Disease (CAD) Additional Family Medical History / Comment(s): Father is . Father had lung cancer. He was a smoker. Mother Additional Family Medical History / Comment(s): Mother is living. She has a hiatal hernia and a mass behind her heart. She is 83yrs old. Medications and Allergies Home Medications Medication Instructions Recorded Confirmed Type Albuterol Inhaler [Ventolin Hfa 1 - 2 puff INHALATION RT-Q6H PRN 06/25/16 History Inhaler] Lactulose 30 ml PO DAILY 08/28/16 08/29/16 History Morphine Sulfate ER [Ms Contin] 30 mg PO Q12HR 08/28/16 08/29/16 History Allergies Allergy/AdvReac Type Severity Reaction Status Date / Time acetaminophen [From Tylenol] AdvReac stomach Verified 08/29/16 08:37 problems Physical Exam Vitals: Vital Signs Temp Pulse Resp BP BP Pulse Ox 08/30/16 14:54 97.3 F L 104 H 18 133/90 98 08/30/16 07:27 98 08/30/16 07:20 103 H 99 08/30/16 07:10 96.2 F L 116 H 16 115/63 85 L 08/29/16 22:43 97.4 F L 115 H 16 103/74 92 L Intake and Output 08/30/16 08/30/16 08/30/16 06:59 14:59 22:59 Other: # Voids 0 2 # Emeses 2 Weight 34.019 kg Patient Weight 08/31/16 06:59 Weight 34.019 kg - Constitutional General appearance: cooperative, severe distress, thin - EENT Eyes: anicteric sclerae ENT: normal oropharynx - Neck Neck: no lymphadenopathy - Respiratory Respiratory: right: diminished, left: CTA - Cardiovascular Rhythm: regular Heart sounds: normal: S1, S2 Abnormal Heart Sounds: no systolic murmur, no diastolic murmur, no rub, no S3 Gallop, no S4 Gallop, no click, no other leg Peripheral Edema: bilateral: None - Gastrointestinal severe distension, abd firm, difficult to palpate upper quadrants due to discomfort, not hot or rigid, no suprapubic pain or inguinal adenopathy, distant bowel sounds, hypoactive. - Neurologic Neurologic: CNII-XII intact - Musculoskeletal Musculoskeletal: generalized weakness - Psychiatric Psychiatric: A&O x's 3, appropriate affect, intact judgment & insight Results CBC & Chem 7: 08/30/16 07:30 08/30/16 07:30 Labs: Abnormal Lab Results - Last 24 Hours (Table) 08/30/16 08/30/16 08/30/16 Range/Units 07:02 07:30 07:30 Lymphocytes # 0.4 L (1.0-4.8) k/uL Potassium 5.2 H (3.5-5.1) mmol/L Carbon Dioxide 17 L (22-30) mmol/L BUN 30 H (7-17) mg/dL Creatinine 0.51 L (0.52-1.04) mg/dL Glucose 140 H (74-99) mg/dL POC Glucose (mg/dL) 143 H (75-99) mg/dL AST 38 H (14-36) U/L Alkaline Phosphatase 152 H (38-126) U/L Total Protein 6.1 L (6.3-8.2) g/dL CA 125 Antigen (<35.1) U/mL 08/30/16 08/30/16 08/30/16 Range/Units 07:30 11:53 16:55 Lymphocytes # (1.0-4.8) k/uL Potassium (3.5-5.1) mmol/L Carbon Dioxide (22-30) mmol/L BUN (7-17) mg/dL Creatinine (0.52-1.04) mg/dL Glucose (74-99) mg/dL POC Glucose (mg/dL) 166 H 197 H (75-99) mg/dL AST (14-36) U/L Alkaline Phosphatase (38-126) U/L Total Protein (6.3-8.2) g/dL CA 125 Antigen 461.0 H (<35.1) U/mL Microbiology - Last 24 Hours (Table) 08/30/16 00:10 Urine Culture - Preliminary Urine,Clean Catch 08/28/16 23:20 Blood Culture - Preliminary Blood No Growth after 24 hours Abdominal x-ray: report reviewed Assessment and Plan (1) Esophageal adenocarcinoma Status: Acute Plan: Dr. Donahue and Dr. Bloom discussed case, concern is for bowel obstruction. With the rapid growth of the tumor in the abdomen, large size and concern for obstruction/high risk of perforation teritary care center transfer was recommended. Dr. Donahue will accept admit at [place], case discussed with Case Management.
[2016-08-30 21:17] LABS: Glucose,Whole Blood 164 mg/dL (75-99)
[2016-08-31] MEDS: HYDROmorphone 1 MG/ML 1 ML SYRINGE IVP PRN ×3 (01:37→07:58)
[2016-08-31 07:36] VITALS: BP 111/71; PULSE 105; RESP 22; TEMP 96.7
[2016-08-31 07:41] LABS: Glucose,Whole Blood 149 mg/dL (75-99)
[2016-08-31] MEDS: LACTULOSE 20 GM/30 ML CUP PO SCH (07:57)
[2016-08-31] MEDS ORDERED: ESOMEPRAZOLE 20 MG in SODIUM CHLORIDE 0.9% 50 ML IVPB SCH (09:00)
[2016-08-31 09:16] LABS: Basophils % (A) 0 %; CH 29.9; CHCM 31.7; Eosinophils % (A) 0 %; HCT 44.1 % (34.0-46.0); HGB 13.8 gm/dL (11.4-16.0); Luc % (Auto) 2; Lymphocytes # (A) 0.5 k/uL (1.0-4.8); Lymphocytes % (A) 5 %; MCH 29.7 pg (25.0-35.0); MCHC 31.3 g/dL (31.0-37.0); MCV 94.8 fL (80.0-100.0); Mean Platelet Volume 7.2; Monocytes # (A) 0.8 k/uL (0-1.0); Monocytes % (A) 9 %; Neutrophils % (A) 84 %; RBC 4.65 m/uL (3.80-5.40); RDW 13.8 % (11.5-15.5); WBC 9.5 k/uL (3.8-10.6); WBC (Perox) 9.29
[2016-08-31 09:31] LABS: ALT 46 U/L (9-52); AST 28 U/L (14-36); Alkaline Phosphatase 148 U/L (38-126); Anion Gap 11 mmol/L; Blood Urea Nitrogen 39 mg/dL (7-17); Carbon Dioxide 22 mmol/L (22-30); Chloride 102 mmol/L (98-107); Glucose 127 mg/dL (74-99); Non-African American GFR(MDRD) >60 (>60 ml/min/1.73 sqM); Sodium 135 mmol/L (137-145); Total Bilirubin 0.5 mg/dL (0.2-1.3); Total Protein 6.1 g/dL (6.3-8.2)
== END 2016-08-31 10:51 | disposition short-term general hospital (02) | DRG 947 ==
LOC: EC 23:06 → 4MS4W 08-29 04:45
PROVIDERS: ADMIT Internal Medicine; ATTEND Internal Medicine
DX: R18.8 Other ascites (principal); E43 Unspecified severe protein-calorie malnutrition; N39.0 Urinary tract infection, site not specified; Z68.1 Body mass index [BMI] 19.9 or less, adult; K59.00 Constipation, unspecified; K21.9 Gastro-esophageal reflux disease without esophagitis; K64.9 Unspecified hemorrhoids; J44.9 Chronic obstructive pulmonary disease, unspecified; F17.200 Nicotine dependence, unspecified, uncomplicated; Z85.01 Personal history of malignant neoplasm of esophagus; Z85.038 Personal history of other malignant neoplasm of large intestine; Z85.41 Personal history of malignant neoplasm of cervix uteri; Z85.828 Personal history of other malignant neoplasm of skin; Z79.891 Long term (current) use of opiate analgesic; Z79.899 Other long term (current) drug therapy
CPT/HCPCS: 36415; 74000; 80053; 81001; 82150; 83605; 83690; 85025; 85610; 85730; 86304; 87040; 87086; 94760